=== PATIENT | male | born 1985 | race Caucasian/White ===

== ENCOUNTER 2022-12-11 18:54 | Emergency (ER) | payer BC ==
[~2022-12-11] VITALS: Ht 170.2 cm; Wt 115.6 kg
[2022-12-11 23:04] VITALS: BP 150/90
== END 2022-12-12 04:14 | disposition left against medical advice (07) ==
LOC: M ED 18:54
DX: Z53.21 Procedure and treatment not carried out due to patient leaving prior to being seen by health care provider (principal)